=== PATIENT | male | born 1990 ===

== ENCOUNTER 2024-12-29 10:14 | Emergency (ER) | payer SELFPAY | END 2024-12-29 10:24 | disposition left against medical advice (07) | LOC: ED 10:14 | DX: T78.40XA Allergy, unspecified, initial encounter (principal); X58.XXXA Exposure to other specified factors, initial encounter; Z53.21 Procedure and treatment not carried out due to patient leaving prior to being seen by health care provider ==

== ENCOUNTER 2025-01-07 13:07 | Emergency (ER) | payer BC ==
[~2025-01-07] VITALS: Wt 86.2 kg
== END 2025-01-07 14:47 | disposition home or self-care (01) ==
LOC: ED 13:07
DX: U07.1 COVID-19 (principal)